=== PATIENT | female | born 1970 | race Caucasian/White ===

== ENCOUNTER → 2020-12-19 16:48 | Outpatient (CLI) | payer BC, SELFPAY ==
--- NOTE | ~2020-12-19 | MM_ITS ---
EXAMINATION: MM screening jaqueline BI w [facility]ila HISTORY: Screening TECHNIQUE: Craniocaudal and mediolateral oblique 3-D tomosynthesis images were obtained and synthetic 2-D images were generated. CAD analysis was submitted and interpreted. COMPARISON: Comparison to multiple prior studies sequentially, with oldest reviewed study dated 10/07. BREAST PARENCHYMAL COMPOSITION: The breasts are heterogenously dense, which may obscure small masses. FINDINGS: There are developing clustered calcifications in the upper outer quadrant of the right ad[address] st, middle third. The left breast is stable without evidence for malignancy. IMPRESSION: 1. Developing clustered right breast calcifications. 2. Magnification views are recommended. BI-RADS Category 0: Incomplete: Needs additional imaging evaluation. Reviewed, dictated and finalized at location A.
== END ==
PROVIDERS: Visit Provider Nurse Practitioner Obstetrics & Gynecology
DX: Z12.31 Encounter for screening mammogram for malignant neoplasm of breast (principal); R92.8 Other abnormal and inconclusive findings on diagnostic imaging of breast
CPT/HCPCS: 77063; 77067

== ENCOUNTER → 2021-01-16 08:32 | Outpatient (CLI) | payer BC, SELFPAY ==
--- NOTE | ~2021-01-16 | MMUS_ITS ---
EXAMINATION: MM diagnostic mammo unilat RT, US breast RT complete HISTORY: Developing clustered right breast calcifications reported on 12/19/2020 screening mammogram TECHNIQUE: Additional ML 3-D tomosynthesis images of the right breast were performed and synthetic 2- D images were generated. Magnification views of right breast. CAD analysis was submitted and interpre nathaly. High resolution complete right breast ultrasound was performed. COMPARISON: 12/19/2020 bilateral digital screening mammogram FINDINGS: MAMMOGRAPHIC FINDINGS: There are scattered microcalcifications, all having benign features. No malignant calcification is ev ident. ULTRASOUND: Complete right breast ultrasound examination was performed. 12:00 2 cm from nipple: 3.6 x 6.5 x 8 mm septated cyst 1:00 3 cm from nipple: Parallel circumscribed 1.9 x 5.3 mm simple cyst 6:00 3 cm from nipple: Parallel circumscribed 2.6 x 6.8 mm simple cyst 9:00 5 cm from nipple: Parallel circumscribed 2.5 x 6.4 mm hypoechoic lesion without internal vascula rity or posterior shadowing, appearing benign IMPRESSION: 1. Benign calcifications; no mammographic evidence of malignancy 2. Routine mammographic screening is recommended BI-RADS Category 2: Benign finding(s). Reviewed, dictated and finalized at location A. IMPRESSION: 1. Benign calcifications; no mammographic evidence of malignancy 2. Routine mammographic screening is recommended BI-RADS Category 2: Benign finding(s).
== END ==
PROVIDERS: Visit Provider Nurse Practitioner Obstetrics & Gynecology
DX: N60.01 Solitary cyst of right breast (principal)
CPT/HCPCS: 76641; 77065

== ENCOUNTER 2023-04-04 19:21 | Emergency (ER) | payer BC, SELFPAY ==
[2023-04-04 19:31] VITALS: BP 107/79; PULSE 61; RESP 16; TEMP 36.8; O2SAT 100
--- NOTE | 2023-04-04 19:46 | ED.SKABFB ---
HPI - Skin/Abscess/Foreign Bdy General Chief complaint: Skin/Abscess/Foreign Body Stated complaint: INFECTED R INDEX FINGER Source: patient Mode of arrival: ambulatory Limitations: no limitations History of Present Illness HPI narrative: 52-year-old female presented for complaint of swelling and pain to the the tip of the right index finger. Onset yesterday. Rates pain 8/10. denies known injury or infection. No treatment prior to arrival. Denies numbness, tingling, weakness or decreased sensation. Related Data Allergies Allergy/AdvReac Type Severity Reaction Status Date / Time No Known Allergies Allergy Verified 10/08/13 06:40 Review of Systems Review of Systems: CONSTITUTIONAL: Denies body aches, fever, chills, or sweats. EYES: Denies visual changes, redness, or discharge. ENT: Denies rhinorrhea, congestion CARDIOVASCULAR: Denies chest pain, palpitations, or edema. RESPIRATORY: Denies cough or dyspnea. GASTROINTESTINAL: Denies abdominal pain, nausea, vomiting, or diarrhea. SKIN: Reports redness, swelling to the right index fingertip MUSCULOSKELETAL: Denies back pain, joint pain, or myalgia. NEUROLOGIC: Denies headache, numbness, tingling, or weakness. [facility] Past Medical History Medical History (Updated 04/04/23 @ 19:57 by Kaelyn Poe, JESSI) No pertinent past medical history Comments At time of signature, I have reviewed and agree with nursing past medical, surgical, social and family history unless otherwise noted. Please see nursing chart for further information. There is no relevant family history pertinent to the presenting complaint Exam Narrative: GENERAL: Well-appearing HEAD: Normocephalic, atraumatic. EYES: conjunctivae clear, and EOMI. ENT: Mucous membranes moist. Oropharynx without edema, erythema or lesions. NECK: Supple. No lymphadenopathy CHEST: Clear to auscultation. HEART: Regular rate and rhythm. SKIN: Warm, dry. Right 2nd digit mild swelling and redness to the palmar aspect of distal phalanx. No open wounds, induration, fluctuance or active drainage. No streaking. Full ROM and intact sensation. Cap refill <3seconds. NEURO: Alert and oriented x3. Course Course Emergency Course: Patient is aware of diagnosis, understands and agrees to treatment plan. Anticipatory guidance given. Patient agrees to follow-up as directed and is aware of reasons to seek care at the emergency department. Portions of this record may have been created with voice recognition software Level of Care: Express Care Visit Vital Signs Vital signs: Vital Signs Temperature 98.3 F 04/04/23 19:31 Pulse Rate 61 04/04/23 19:31 Respiratory Rate 16 04/04/23 19:31 Blood Pressure 107/79 04/04/23 19:31 Pulse Oximetry 100 04/04/23 19:31 Temperature 98.3 F 04/04/23 19:31 Pulse Rate 61 04/04/23 19:31 Respiratory Rate 16 04/04/23 19:31 Blood Pressure 107/79 04/04/23 19:31 Pulse Oximetry 100 04/04/23 19:31 Reviewed MDM - Skin/Abscess/Foreign Bdy MDM Narrative Medical decision making narrative: Discussed physical exam findings, appears c/w early felon. No indication for I&D at this time. Advised supportive measures and signs/symptoms to go to the ER. Pt is appropriate for outpt treatment and f/u. Instructed patient to go to nearest ER immediately for any worsening symptoms including but not limited to: fever, spreading redness/swelling/pain or any symptoms concerning to the patient. Differential Diagnosis Differential diagnosis: Likely abscess of skin or subcutaneous tissue, urticaria, herpes zoster, cellulitis, contact dermatitis and other (paronychia, felon) Discharge Plan Discharge Clinical Impression: Finger swelling Patient Disposition: Home, Self-Care Condition: Stable Instructions: Antibiotic Form, Paronychia (ED) Additional Instructions: Soak your nail in warm soapy water 3 or 4 times each day. Raise your nail above the level of your h
== END 2023-04-04 20:06 | disposition home or self-care (01) ==
PROVIDERS: Emergency Provider Nurse Practitioner Family; PCP Internal Medicine
DX: R22.31 Localized swelling, mass and lump, right upper limb (principal)
CPT/HCPCS: 99213; G0463